=== PATIENT | male | born 1950 | race Caucasian/White ===

== ENCOUNTER 2016-07-08 21:13 | Emergency (ER) | payer BC ==
[~2016-07-08 21:13] MED LIST: HYZAAR 100-25 T1 TAB PO; ZOCOR40 MG PO
[2016-07-08] MEDS ORDERED: LOSARTAN POTASS25 M1 PO (21:58)
[2016-07-08] MEDS ORDERED: MOBIC7.5 M2 PO (21:58)
[2016-07-08] MEDS ORDERED: KEFLEX500 M4 PO (23:24)
== END 2016-07-08 23:36 ==
LOC: EDMED 21:13
PROC: 0HQ1XZZ Repair Face Skin, External Approach (ICD-10-PCS; principal; 2016-07-08)
DX: S01.511A Laceration without foreign body of lip, initial encounter (principal); I10 Essential (primary) hypertension; E78.00 Pure hypercholesterolemia, unspecified; W01.0XXA Fall on same level from slipping, tripping and stumbling without subsequent striking against object, initial encounter; Y92.009 Unspecified place in unspecified non-institutional (private) residence as the place of occurrence of the external cause